=== PATIENT | female | born 1970 | race Two or more races ===

== ENCOUNTER 2021-11-29 11:27 | Emergency (ER) | payer BC ==
[~2021-11-29] VITALS: Ht 162.6 cm; Wt 74.4 kg
--- NOTE | 2021-11-29 11:35 | NUR ---
PATIENT [id number] FRM WORK, "NOT FEELING WELL" VOMITING x 3 MEDICAL CODING MANAGER. HOOKED UP TO MONITOR. ON RA. PROVIDED WARM BLANKETS. AWAITING TO BE SEEN BY MD. WILL MONITOR
[2021-11-29] MEDS ORDERED: IV NS 0.9% 1,000 ML BAG IV ONE (12:00)
[2021-11-29] MEDS ORDERED: ONDANSETRON HCL/PF 4 MG/2 ML VIAL IVP ONE (12:00)
--- NOTE | 2021-11-29 12:00 | NUR ---
IV ACCESS ESTABLISHED R AC G#20. LABS DRAWN AND SENT TO LAB.
[2021-11-29 12:10] LABS: BASOPHILS % (AUTO) 0.4 % (0.0-2.0); EOSINOPHILS % (AUTO) 2.5 % (0.0-6.0); HEMATOCRIT 37 % (33-45); LYMPHOCYTES # (AUTO) 2.8 K/uL (0.8-4.8); LYMPHOCYTES % (AUTO) 29.2 % (20.0-44.0); MEAN CORPUSCULAR HGB CONC 33 g/dl (31.0-36.0); MEAN CORPUSCULAR VOLUME 84 fL (82-100); MONOCYTES # (AUTO) 0.7 K/uL (0.1-1.30); MONOCYTES % (AUTO) 6.9 % (2.0-12.0); NEUTROPHILS # (AUTO) 5.9 K/uL (1.8-8.9); PLATELET COUNT (AUTO) 409 K/uL (150-450); RED BLOOD CELL COUNT(AUTO) 4.35 MIL/uL (4.0-5.2); WHITE BLOOD COUNT (AUTO) 9.7 K/uL (4.3-11.0)
--- NOTE | 2021-11-29 12:11 | NUR ---
PATIENT TAKEN FOR CT
[2021-11-29 12:31] LABS: SERUM AMMONIA 5 umol/L (11-32)
[2021-11-29 12:36] LABS: ALBUMIN 4.4 g/dL (3.4-5.0); BILIRUBIN,DIRECT 0.1 mg/dL (0.0-0.2); BILIRUBIN,TOTAL 0.4 mg/dL (0.2-1.0); CALCIUM, SERUM 9.2 mg/dL (8.5-10.1); CREATININE 0.9 mg/dL (0.6-1.3); TOTAL PROTEIN, SERUM 8.1 g/dL (6.4-8.2)
[2021-11-29] MEDS ORDERED: ONDANSETRON HCL/PF 4 MG/2 ML VIAL ONE (12:36)
--- NOTE | 2021-11-29 12:36 | NUR ---
ADDENDUM: Intravenous End Time Documentation: Normal saline 1 liter (IV-WO) : start time: 1236 PM ; end time: 1336 PM: IV site:[facility] PIV # 20 Port # 1
[2021-11-29 13:39] LABS: ACETAMINOPHEN < 0 ug/ml (10-30)
[2021-11-29] MEDS ORDERED: ONDA4TAB11 PO (14:03)
--- NOTE | 2021-11-29 14:09 | NUR ---
IV removed. Catheter intact and site benign. Pressure and 4x4 applied to site. No bleeding noted.
--- NOTE | 2021-11-29 14:09 | NUR ---
Patient discharged to home in stable condition. Written and verbal after care instructions given. Patient verbalizes understanding of instruction.
[2021-11-29 15:37] VITALS: BP 124/78
== END 2021-11-29 14:09 | disposition home or self-care (01) ==
LOC: ER 11:32
DX: R11.2 Nausea with vomiting, unspecified (principal); R00.2 Palpitations; I10 Essential (primary) hypertension; Z79.899 Other long term (current) drug therapy
CPT/HCPCS: 36415; 70450; 80048; 80076; 80143; 82140; 83690; 83735; 84443; 84484; 85025; 93005; 96361; 96374; 99285; J2405; J7030